=== PATIENT | male | born 1950 | race Caucasian/White ===

== ENCOUNTER → 2016-10-09 | Day surgery (SDC) | payer MEDICARE, OTHER ==
[~2016-10-09] VITALS: Ht 185.4 cm; Wt 105.2 kg
[~2016-10-09] MED LIST: ADVAIR 500-501 EACH INH; ASPIRIN EC81 MG PO; CARAFATE1 GM PO; CPAP INH; DEPAKOTE500 MG PO; DEPO-TESTO200 MG/1 M IM; DUONEB INH; EFFEXOR XR75 MG PO; FLONASE 50 MCG/16 GM NOSE; K-TAB 10MEQ10 MEQ PO; LASIX40 MG PO; LIPITOR10 MG PO; METOLAZONE5 MG PO; MOBIC15 MG PO; MS CONTIN30 MG PO; MUCINEX600 MG PO; OXYCODONE HCL30 MG PO; PRINIVIL (ZESTR20 MG PO; PROTONIX40 MG PO; PROVENTIL OR V6.7 GM INH; PULMICORT0.5 MG/2 M INH; VALIUM5 MG PO; ZANAFLEX4 MG PO
--- NOTE | ~2016-10-09 | OR ---
PATIENT'S NAME: CRAIG YATES [facility] AGE: 66 Y [address] ROOM: [place] [id number] LOCATION: [facility] ADMIT DATE: 10/09/2016 OR/Procedure Report DISCHARGE DATE: FAMILY PHYSICIAN: Rachel Okeefe ATTENDING PHYSICIAN: Rachel Okeefe SURGEON: César Julian MD DIRECTOR CALL CENTER SALES: DATE OF PROCEDURE: 10/09/2016 PROCEDURE: L1-L2 interlaminar epidural steroid injection. ANESTHESIA: MAC. INDICATION: The patient has lumbar disk disease with radiculopathy. He has an allergy to contrast dye, which causes seizures. He has had L3-L4 to S1 fusion. Risks, benefits, and alternatives explained to the patient. His allergy to contrast dye was not noted and did not receive any pretreatment, so that it is low likelihood that he is allergic to contrast media given this was seizure when he was a kid with an appendicitis. However, he is from [facility] and traveled some distance to here so we did a lumbar epidural injection without contrast. DESCRIPTION OF PROCEDURE: He was taken to the procedure room and placed in the prone position. The back was prepped with Betadine x3 and a sterile drape applied on top. Fluoroscopy was used to identify the L1-L2 interspace as the L2-L3 site, likely would have been affected by the surgery. The monitored anesthesia care was provided by Aramis Carrasco. The skin was numbed with 3 mL of 1% lidocaine and an 18-gauge Tuohy was advanced using loss of resistance technique and fluoroscopic guidance. The Tuohy needle was placed in the caudal direction. Once loss of resistance was found, which was confirmed in the lateral position. Negative aspiration with a mixture of 3 mL of 0.25% bupivacaine and 80 mg of Depo-Medrol were injected without complication. Stylette placed, needle withdrawn, hemostasis achieved. BLOOD LOSS: None. COMPLICATIONS: None. CÉSAR JULIAN MD PATIENT'S NAME: CRAIG YATES [facility] AGE: 66 Y [address] ROOM: [place] [id number] LOCATION: [facility] ADMIT DATE: 10/09/2016 OR/Procedure Report DISCHARGE DATE: FAMILY PHYSICIAN: Rachel Okeefe ATTENDING PHYSICIAN: Rachel Okeefe/[email or web address] /[id number] d: 10/09/16 2358 t: 10/18/16 1249, OPERATIVE SUMMARY
== END | disposition disaster alternative care site (69) ==
LOC: GPOC 10-05 15:00 → GSDC 13:55
PROC: 3E0R33Z Introduction of Anti-inflammatory into Spinal Canal, Percutaneous Approach (ICD-10-PCS; principal; 2016-10-09)
PROC: 3E0R3BZ Introduction of Anesthetic Agent into Spinal Canal, Percutaneous Approach (ICD-10-PCS; 2016-10-09)
DX: G89.29 Other chronic pain (principal); M51.16 Intervertebral disc disorders with radiculopathy, lumbar region; M53.3 Sacrococcygeal disorders, not elsewhere classified; N52.9 Male erectile dysfunction, unspecified; G43.909 Migraine, unspecified, not intractable, without status migrainosus; E78.5 Hyperlipidemia, unspecified; M15.9 Polyosteoarthritis, unspecified; J44.9 Chronic obstructive pulmonary disease, unspecified; F41.9 Anxiety disorder, unspecified; Z87.891 Personal history of nicotine dependence; Z88.5 Allergy status to narcotic agent; Z88.1 Allergy status to other antibiotic agents; Z91.041 Radiographic dye allergy status; Z79.899 Other long term (current) drug therapy; Z98.890 Other specified postprocedural states
CPT/HCPCS: J1040; J2001; J2250; J3010; J7030